=== PATIENT | male | born 1965 | race Caucasian/White ===

== ENCOUNTER → 2016-12-17 | Outpatient (CLI) | payer MEDICARE, MEDICAID ==
[~2016-12-17] MED LIST: AMLO-512 PO; CLON.1 PO; LISI-662 PO; OMEP20CA10 PO; SEVEC800 PO; TEMA15CA PO; TENO300 PO
== END | disposition home or self-care (01) ==
LOC: LABPV 14:49
PROVIDERS: ATTEND Internal Medicine Nephrology
DX: K74.60 Unspecified cirrhosis of liver (principal)
CPT/HCPCS: 82105

== ENCOUNTER → 2017-05-16 | Outpatient (CLI) | payer MEDICARE, MEDICAID ==
[~2017-05-16] MED LIST changes: -CLON.1 PO; +CLON.2 PO; +FOLI0.8T2 PO; +GUAI5SYR4 PO; +HYDR10TA31 PO; +IOVERSOL 350 MG/ML 150 ML VIAL ONE; +NAPR500T3 PO; +SODIUM CHLORIDE 0.9% 100 ML ONE
== END | disposition home or self-care (01) ==
LOC: RADMN 07:54
PROVIDERS: ATTEND Internal Medicine Nephrology
DX: K76.0 Fatty (change of) liver, not elsewhere classified (principal); J18.9 Pneumonia, unspecified organism; J90 Pleural effusion, not elsewhere classified; K76.6 Portal hypertension; R18.8 Other ascites; K76.9 Liver disease, unspecified; N26.1 Atrophy of kidney (terminal); I86.8 Varicose veins of other specified sites; I27.2 Other secondary pulmonary hypertension; R91.8 Other nonspecific abnormal finding of lung field; I51.7 Cardiomegaly; I70.0 Atherosclerosis of aorta; I25.10 Atherosclerotic heart disease of native coronary artery without angina pectoris; N28.1 Cyst of kidney, acquired
CPT/HCPCS: 71260; 74178; J7050; Q9967

== ENCOUNTER 2018-01-16 19:31 | Emergency (ER) | payer MEDICARE, MEDICAID ==
[~2018-01-16] VITALS: Ht 177.8 cm; Wt 56.8 kg
[~2018-01-16 19:31] MED LIST changes: -IOVERSOL 350 MG/ML 150 ML VIAL ONE; +NAPR-1024 PO; -NAPR500T3 PO; -SODIUM CHLORIDE 0.9% 100 ML ONE
[2018-01-16] MEDS ORDERED: HYDR-2924 PO (19:42)
[2018-01-16] MEDS ORDERED: CARV6 PO (19:42)
[2018-01-16] MEDS ORDERED: SEVEC800 PO (19:42)
[2018-01-16] MEDS ORDERED: ASPI-556 PO (19:42)
[2018-01-16 20:38] LABS: EOSINOPHILS % (AUTO) 6.5 % (1.0-6.0); HEMATOCRIT 34.6 % (41-53); HEMOGLOBIN 11.6 g/dL (13.5-17.5); LYMPHOCYTES # (AUTO) 0.5 K/uL (1.0-4.8); LYMPHOCYTES % (AUTO) 11.1 % (22.0-44.0); MEAN CORPUSCULAR HGB CONC 33.6 G/dL (31.0-37.0); MEAN CORPUSCULAR VOLUME 92 fL (80-100); MONOCYTES # (AUTO) 0.3 K/uL (0.1-1.0); MONOCYTES % (AUTO) 5.9 % (2.0-9.0); NEUTROPHILS # (AUTO) 3.4 K/uL (1.8-7.7); NEUTROPHILS % (AUTO) 75.5 % (40.0-70.0); PLATELET COUNT (AUTO) 193 K/uL (150-450); RED BLOOD CELL COUNT(AUTO) 3.74 MIL/uL (4.50-5.90); RED CELL DISTRIBUTION WIDTH 15.1 % (11.5-14.5)
[2018-01-16 20:52] LABS: CALCIUM, TOTAL 9.4 mg/dL (8.8-10.5); CREATININE 8.42 mg/dL (0.60-1.30); POTASSIUM 4.6 mmol/L (3.5-5.1)
[2018-01-16 20:58] LABS: ALBUMIN 3.5 g/dL (3.4-5.0); BILIRUBIN,TOTAL 0.4 mg/dL (0.1-1.0); TOTAL PROTEIN, SERUM 7.9 g/dL (6.4-8.2)
[2018-01-16 21:00] LABS: LACTIC ACID 0.5 mmol/L (0.4-2.0)
[2018-01-16 21:43] VITALS: BP 148/85
[2018-01-16] MEDS ORDERED: ACETAMINOPHEN 500 MG TABLET PO ONE (21:45)
== END 2018-01-16 22:11 | disposition home or self-care (01) ==
LOC: EMS 19:37
DX: R10.31 Right lower quadrant pain (principal); I13.11 Hypertensive heart and chronic kidney disease without heart failure, with stage 5 chronic kidney disease, or end stage renal disease; N18.6 End stage renal disease; F17.210 Nicotine dependence, cigarettes, uncomplicated; Z99.2 Dependence on renal dialysis
CPT/HCPCS: 83605; 93005; 99285

== ENCOUNTER 2018-01-22 09:15 | Emergency (ER) | payer MEDICARE, MEDICAID ==
[~2018-01-22] VITALS: Ht 175.3 cm; Wt 55.0 kg
[~2018-01-22 09:15] MED LIST changes: +ASPI-556 PO; +CARV6 PO; -FOLI0.8T2 PO; -GUAI5SYR4 PO; +HYDR-2924 PO; -HYDR10TA31 PO; -NAPR-1024 PO; -TENO300 PO
[2018-01-22 10:43] LABS: BASOPHILS % (AUTO) 1.2 % (0.0-2.0); EOSINOPHILS % (AUTO) 10.7 % (1.0-6.0); HEMATOCRIT 34.9 % (41-53); HEMOGLOBIN 11.9 g/dL (13.5-17.5); LYMPHOCYTES # (AUTO) 0.7 K/uL (1.0-4.8); LYMPHOCYTES % (AUTO) 18.1 % (22.0-44.0); MEAN CORPUSCULAR HEMOGLOBIN 31.7 pg (26.0-34.0); MEAN CORPUSCULAR HGB CONC 34.2 G/dL (31.0-37.0); MEAN CORPUSCULAR VOLUME 93 fL (80-100); MONOCYTES # (AUTO) 0.4 K/uL (0.1-1.0); MONOCYTES % (AUTO) 10.6 % (2.0-9.0); NEUTROPHILS # (AUTO) 2.3 K/uL (1.8-7.7); NEUTROPHILS % (AUTO) 59.4 % (40.0-70.0); PLATELET COUNT (AUTO) 179 K/uL (150-450); RED BLOOD CELL COUNT(AUTO) 3.76 MIL/uL (4.50-5.90); RED CELL DISTRIBUTION WIDTH 15.2 % (11.5-14.5)
[2018-01-22 10:53] LABS: CALCIUM, TOTAL 9.1 mg/dL (8.8-10.5); CREATININE 9.69 mg/dL (0.60-1.30); POTASSIUM 4.7 mmol/L (3.5-5.1)
[2018-01-22 11:03] LABS: PROTHROMBIN TIME 10.9 SEC (9.4-11.6)
[2018-01-22 11:11] LABS: ALBUMIN 3.4 g/dL (3.4-5.0); BILIRUBIN,TOTAL 0.4 mg/dL (0.1-1.0); TOTAL PROTEIN, SERUM 8.1 g/dL (6.4-8.2)
[2018-01-22 12:43] VITALS: BP 152/90
== END 2018-01-22 12:45 | disposition home or self-care (01) ==
LOC: EMS 09:18
DX: K92.1 Melena (principal); D64.9 Anemia, unspecified; I13.11 Hypertensive heart and chronic kidney disease without heart failure, with stage 5 chronic kidney disease, or end stage renal disease; N18.6 End stage renal disease; F17.210 Nicotine dependence, cigarettes, uncomplicated; Z79.82 Long term (current) use of aspirin; Z99.2 Dependence on renal dialysis; Z94.0 Kidney transplant status
CPT/HCPCS: 82270; 82271; 99285

== ENCOUNTER → 2018-02-19 | Outpatient (CLI) | payer MEDICARE, MEDICAID | END | disposition home or self-care (01) | LOC: RADPV 14:28 | PROVIDERS: ATTEND Internal Medicine Nephrology | DX: J90 Pleural effusion, not elsewhere classified (principal); Z99.2 Dependence on renal dialysis | CPT/HCPCS: 71046 ==

== ENCOUNTER → 2018-09-23 | Outpatient (CLI) | payer MEDICARE, MEDICAID | END | disposition home or self-care (01) | LOC: RADPV 14:20 | PROVIDERS: ATTEND Internal Medicine Nephrology | DX: I70.0 Atherosclerosis of aorta (principal) ==

== ENCOUNTER 2018-10-06 13:38 | Emergency (ER) | payer MEDICARE, MEDICAID ==
[~2018-10-06] VITALS: Ht 175.3 cm; Wt 61.4 kg
[2018-10-06 15:00] LABS: BASOPHILS % (AUTO) 0.1 % (0.0-2.0); EOSINOPHILS % (AUTO) 1.1 % (1.0-6.0); HEMATOCRIT 29.8 % (41-53); HEMOGLOBIN 9.7 g/dL (13.5-17.5); LYMPHOCYTES # (AUTO) 0.4 K/uL (1.0-4.8); MEAN CORPUSCULAR HGB CONC 32.4 G/dL (31.0-37.0); MEAN CORPUSCULAR VOLUME 87 fL (80-100); MONOCYTES # (AUTO) 0.4 K/uL (0.1-1.0); MONOCYTES % (AUTO) 6.6 % (2.0-9.0); NEUTROPHILS # (AUTO) 5.5 K/uL (1.8-7.7); PLATELET COUNT (AUTO) 227 K/uL (150-450); RED BLOOD CELL COUNT(AUTO) 3.44 MIL/uL (4.50-5.90); RED CELL DISTRIBUTION WIDTH 17.8 % (11.5-14.5)
[2018-10-06 15:11] LABS: NEUTROPHILS % (AUTO) 86.2 % (40.0-70.0)
[2018-10-06 15:17] LABS: ANION GAP 7 mmol/L (8-16); CALCIUM, TOTAL 8.7 mg/dL (8.8-10.5); CARBON DIOXIDE 34 mmol/L (22-29); CHLORIDE 94 mmol/L (98-107); CREATININE 5.21 mg/dL (0.60-1.30); GLOMERULAR FILTR. RATE CALC 12 mL/min (>60); GLUCOSE,RANDOM 107 mg/dL (70-110); POTASSIUM 3.5 mmol/L (3.5-5.1); SODIUM SERUM 135 mmol/L (136-145); UREA NITROGEN, BLOOD 36 mg/dL (7-18)
[2018-10-06 15:18] LABS: INR 1.1 (0.9-1.1); PROTHROMBIN TIME 11.1 SEC (9.4-11.6)
[2018-10-06 15:27] LABS: LACTIC ACID 0.9 mmol/L (0.4-2.0)
[2018-10-06 15:34] LABS: ALANINE AMINOTRANSFERASE 14 U/L (12-78); ALKALINE PHOSPHATASE 100 U/L (46-116); ASPARTATE AMINOTRANSFERASE 19 U/L (15-37); BILIRUBIN,TOTAL 0.5 mg/dL (0.1-1.0); LIPASE 341 U/L (73-393); TOTAL PROTEIN, SERUM 8.8 g/dL (6.4-8.2)
[2018-10-06 15:44] LABS: B-TYPE NATRIURETIC PEPTIDE 530 pg/mL (0-100)
[2018-10-06 16:44] LABS: GLUCOSE,POINT OF CARE 114 MG/DL (70-110)
[2018-10-06 19:42] VITALS: BP 125/84
== END 2018-10-06 20:04 | disposition home or self-care (01) ==
LOC: EMS 13:39
DX: S22.32XA Fracture of one rib, left side, initial encounter for closed fracture (principal); S30.1XXA Contusion of abdominal wall, initial encounter; S05.12XA Contusion of eyeball and orbital tissues, left eye, initial encounter; I13.11 Hypertensive heart and chronic kidney disease without heart failure, with stage 5 chronic kidney disease, or end stage renal disease; N18.6 End stage renal disease; F17.210 Nicotine dependence, cigarettes, uncomplicated; Z99.2 Dependence on renal dialysis; Z79.82 Long term (current) use of aspirin; Z79.899 Other long term (current) drug therapy; V43.92XA Unspecified car occupant injured in collision with other type car in traffic accident, initial encounter; Y93.89 Activity, other specified; Y92.89 Other specified places as the place of occurrence of the external cause; Y99.8 Other external cause status
CPT/HCPCS: 36415; 71045; 71250; 72192; 73000; 74150; 80053; 82948; 82962; 83605; 83690; 83880; 84484; 85025; 85610; 93005; 99285; G0480

== ENCOUNTER 2018-11-05 16:16 | Inpatient (IN) | payer MEDICARE, MEDICAID ==
[~2018-11-05] VITALS: Ht 167.6 cm; Wt 44.8 kg
[2018-11-05 17:39] LABS: BASOPHILS % (AUTO) 1.5 % (0.0-2.0); EOSINOPHILS % (AUTO) 4.4 % (1.0-6.0); HEMATOCRIT 30.1 % (41-53); HEMOGLOBIN 9.7 g/dL (13.5-17.5); LYMPHOCYTES # (AUTO) 0.4 K/uL (1.0-4.8); LYMPHOCYTES % (AUTO) 16.3 % (22.0-44.0); MEAN CORPUSCULAR HEMOGLOBIN 28.3 pg (26.0-34.0); MEAN CORPUSCULAR HGB CONC 32.1 G/dL (31.0-37.0); MEAN CORPUSCULAR VOLUME 88 fL (80-100); MONOCYTES # (AUTO) 0.3 K/uL (0.1-1.0); MONOCYTES % (AUTO) 11.5 % (2.0-9.0); NEUTROPHILS # (AUTO) 1.5 K/uL (1.8-7.7); NEUTROPHILS % (AUTO) 66.3 % (40.0-70.0); PLATELET COUNT (AUTO) 242 K/uL (150-450); RED BLOOD CELL COUNT(AUTO) 3.42 MIL/uL (4.50-5.90); RED CELL DISTRIBUTION WIDTH 17.3 % (11.5-14.5)
[2018-11-05 17:52] LABS: CALCIUM, TOTAL 8.7 mg/dL (8.8-10.5); CREATININE 3.57 mg/dL (0.60-1.30); POTASSIUM 3.7 mmol/L (3.5-5.1)
[2018-11-05 17:57] LABS: ALBUMIN 3.1 g/dL (3.4-5.0); BILIRUBIN,TOTAL 0.3 mg/dL (0.1-1.0); TOTAL PROTEIN, SERUM 8.2 g/dL (6.4-8.2)
[2018-11-05 18:00] LABS: LACTIC ACID 0.8 mmol/L (0.4-2.0)
[2018-11-05] MEDS ORDERED: ACETAMINOPHEN 325 MG TABLET PO PRN (20:45)
[2018-11-05] MEDS ORDERED: BISACODYL 10 MG RECTAL RECTAL SUPPOSITORY PR PRN (20:45)
[2018-11-05] MEDS: DOCUSATE SODIUM 100 MG CAPSULE PO SCH (20:59)
[2018-11-05] MEDS: HEPARIN SODIUM,PORCINE 5,000 UNITS/ML VIAL SQ SCH ×2 (20:59→21:00)
[2018-11-05 21:27] LABS: PROTHROMBIN TIME 10.7 SEC (9.4-11.6)
[2018-11-05 21:40] VITALS: BP 149/84
[2018-11-05] MEDS ORDERED: TEMAZEPAM 15 MG CAPSULE PO PRN (22:00)
[2018-11-05] MEDS: CloNIDine HCL 0.2 MG TABLET PO SCH (22:27)
[2018-11-05 23:59] VITALS: BP 139/79
[2018-11-06 04:05] VITALS: BP 131/80
[2018-11-06 07:39] VITALS: BP 142/83
[2018-11-06] MEDS: HEPARIN SODIUM,PORCINE 5,000 UNITS/ML VIAL SQ SCH (09:00)
[2018-11-06] MEDS ORDERED: PANTOPRAZOLE SODIUM 40 MG DR TABLET PO SCH (09:00)
[2018-11-06] MEDS ORDERED: ASPIRIN 81 MG CHEWABLE TABLET PO SCH (09:00)
[2018-11-06] MEDS: CloNIDine HCL 0.2 MG TABLET PO SCH (09:14)
[2018-11-06] MEDS: DOCUSATE SODIUM 100 MG CAPSULE PO SCH (09:15)
[2018-11-06 11:25] VITALS: BP 141/83
[2018-11-06 12:00] LABS: SPECIMENTYPE,BODY FLUID PLEURAL
[2018-11-06 13:48] LABS: APPEARANCE,SPUN,BODY FLUID HAZY (CLEAR); APPEARANCE,UNSPUN,BODY FLUID HAZY (CLEAR); COLOR,BODY FLUID AMBER (LT YELLOW)
[2018-11-06 13:49] LABS: BASOPHILS,BODY FLUID 0 %; EOSINOPHILS,BF (ANAL) 0 %; LYMPHOCYTES,BODY FLUID 10 %; MONOCYTES,BODY FLUID 9 %; NEUTROPHILS,BODY FLUID 81 %; TOTAL VOLUME,BODY FLUID 1200 mL; WBC, BODY FLUID 13 /cu. mm.
== END 2018-11-06 14:56 | disposition home or self-care (01) | DRG 186 ==
LOC: EMS 16:18 → 6N 20:01
PROVIDERS: ADMIT Internal Medicine; ATTEND Internal Medicine
PROC: 0W993ZX Drainage of Right Pleural Cavity, Percutaneous Approach, Diagnostic (ICD-10-PCS; principal; 2018-11-06)
DX: J90 Pleural effusion, not elsewhere classified (principal); N18.6 End stage renal disease; E43 Unspecified severe protein-calorie malnutrition; I12.0 Hypertensive chronic kidney disease with stage 5 chronic kidney disease or end stage renal disease; B19.10 Unspecified viral hepatitis B without hepatic coma; R64 Cachexia; Z68.1 Body mass index [BMI] 19.9 or less, adult; J44.9 Chronic obstructive pulmonary disease, unspecified; D64.9 Anemia, unspecified; D63.1 Anemia in chronic kidney disease; K74.60 Unspecified cirrhosis of liver; Z82.49 Family history of ischemic heart disease and other diseases of the circulatory system; Z99.2 Dependence on renal dialysis; Z87.891 Personal history of nicotine dependence
CPT/HCPCS: 32555; 76942; 82465; 82945; 83605; 83615; 83986; 84157; 87015; 87040; 87070; 87081; 87206; 88108; 89051; 93005; 93306; G0378; J1644

== ENCOUNTER → 2019-01-18 | Outpatient (CLI) | payer MEDICARE, MEDICAID ==
[~2019-01-18] VITALS: Ht 170.2 cm; Wt 43.0 kg
[2019-01-18 10:14] VITALS: BP 107/71
== END | disposition home or self-care (01) ==
LOC: SRCNTR 10:12
PROVIDERS: ATTEND Internal Medicine
DX: I50.9 Heart failure, unspecified (principal); N18.6 End stage renal disease
CPT/HCPCS: G0463

== ENCOUNTER → 2019-01-19 | Outpatient (CLI) | payer MEDICARE, MEDICAID | END | disposition home or self-care (01) | LOC: RADMN 13:17 | PROVIDERS: ATTEND Internal Medicine | DX: K80.80 Other cholelithiasis without obstruction (principal); R19.09 Other intra-abdominal and pelvic swelling, mass and lump; R16.0 Hepatomegaly, not elsewhere classified; D48.7 Neoplasm of uncertain behavior of other specified sites | CPT/HCPCS: 71250; 72192; 74150 ==